=== PATIENT | female | born 1980 | race Caucasian/White ===

== ENCOUNTER 2017-02-10 20:27 | Emergency (ER) | payer OTHER ==
[2017-02-11] MEDS ORDERED: IBUPROFEN 800 MG TABLET ONE ×2 (00:24→00:28)
== END 2017-02-11 00:32 | disposition home or self-care (01) ==
LOC: ED 20:27
DX: S01.81XA Laceration without foreign body of other part of head, initial encounter (principal); W01.10XA Fall on same level from slipping, tripping and stumbling with subsequent striking against unspecified object, initial encounter; Y93.01 Activity, walking, marching and hiking; Y92.9 Unspecified place or not applicable
CPT/HCPCS: 99282 ×2; 12011 ×2; A9270 ×2